=== PATIENT | female | born 1990 | race Caucasian/White ===

== ENCOUNTER → 2016-12-14 | Outpatient (CLI) | payer MEDICAID, OTHER ==
[~2016-12-14] MED LIST: /AUGM875TA OR; FLON0.05; MULTIVIT PO; TYLENOL #3 OR
[2016-12-14 13:40] LABS: BASO % 0.2 % (0.0-1.0); EOS # 0.2 K/mm3 (0.0-0.50); EOS % 2.4 % (0.0-3.0); LARGE UNSTAINED CELL # 0.2 K/mm3 (0.0-0.4); LARGE UNSTAINED CELL % 3.5 % (0.0-4.0); LYMPH # 1.4 K/mm3 (1.5-6.5); LYMPH % 22.8 % (24.0-44.0); MEAN CORPUSCULAR HEMOGLOBIN 31.5 pg (27.0-33.0); MEAN CORPUSCULAR HGB CONC 33.9 g/dl (32.0-36.5); MEAN CORPUSCULAR VOLUME 92.8 fl (80.0-96.0); MONO # 0.5 K/mm3 (0.0-0.8); MONO % 7.7 % (0.0-5.0); NEUTROPHILS # 3.9 K/mm3 (1.8-7.7); NEUTROPHILS % 63.5 % (36.0-66.0); PLATELET COUNT, AUTOMATED 280 k/mm3 (150-450); WHITE BLOOD COUNT 6.2 K/mm3 (4.0-10.0)
[2016-12-14 13:46] LABS: HBsAg Prenatal NEGATIVE (NEGATIVE)
[2016-12-14 14:21] LABS: HIV SCRN NEGATIVE (NEGATIVE); HIV SCRN1 NEGATIVE (NEGATIVE)
[2016-12-14 14:22] LABS: CONTROL LINE INT CTR LINE PRESENT
== END ==
LOC: M LAB 11:49
PROVIDERS: ATTEND Advanced Practice Midwife
DX: Z34.81 Encounter for supervision of other normal pregnancy, first trimester (principal)

== ENCOUNTER → 2016-12-25 | Outpatient (CLI) | payer MEDICAID ==
--- NOTE | 2016-12-25 13:11 | REP ---
OB ULTRASOUND: Real-time sonographic evaluation of the gravid uterus performed. There is a single living intrauterine gestation. Estimated gestational age 15 weeks 3 days based on today's ultrasound with EDC 06/15/2017. BPD 30 mm 15 weeks 4 days HC 114 mm 15 weeks 4 days AC 95 mm 15 weeks 5 days FL 17 mm 15 weeks 0 days HC/AC ratio 1.19 within normal range. Estimated weight 122 grams, 40th percentile. Cervix closed and measures 3.3 cm in length. heart rate 138 beats per minute. Placenta anterior with no abruption. Amniotic fluid within normal limits. Signed by Devante Vásquez MD 12/25/2016 03:31 P
== END ==
LOC: M RAD 11:42
PROVIDERS: ATTEND Advanced Practice Midwife
DX: Z34.82 Encounter for supervision of other normal pregnancy, second trimester (principal)

== ENCOUNTER → 2017-02-07 | Outpatient (CLI) | payer MEDICAID ==
--- NOTE | 2017-02-07 16:01 | REP ---
REASON: anatomy. Multiple ultrasonographic images of the gravid uterus show a single living intrauterine gestation in the cephalic presentation. Doppler interrogation of the heart shows a heart rate of 155 beats per minute. The placenta is anterior and not low lying. The subjective amniotic fluid volume is within normal limits. The cervix measures 4 cm in length and is closed. Evaluation of the maternal adnexal spaces showed no abnormalities. BPD 5.3 cm = 22 weeks 1 day HC 19.5 cm = 21 weeks 5 days AC 18.0 cm = 22 weeks 6 days FL 3.7 cm = 21 weeks 5 days The estimated weight is 493 grams which is at the 66th percentile for a 21 week 5 day gestational age. Structures visualized and unremarkable are as follows: Thalami, cavum septum pellucidum, cerebellum, cisterna magna, cerebral ventricles, spine, kidneys, bladder, stomach, cord insertion, three vessel umbilical cord, extremities, four chamber heart, ventricular outflow tracts, and upper lip. IMPRESSION: A single living intrauterine gestation as described above with an estimated gestational age of 22 weeks 1 day via composite criteria giving rise to an estimated date of delivery of 06/12/2017 by today's exam. No anomalies were detected. Signed by Travis Heath DO 02/07/2017 04:24 P
== END ==
LOC: M RAD 13:26
PROVIDERS: ATTEND Obstetrics & Gynecology
DX: Z34.80 Encounter for supervision of other normal pregnancy, unspecified trimester (principal)

== ENCOUNTER → 2017-05-15 | Outpatient (REF) | payer OTHER ==
[~2017-05-15] MED LIST changes: +COLA100C5 PO; +IBUP80TA PO; +OXYC1TAB23 PO; +PRENTAB55 PO
== END ==
LOC: M LAB REF 17:21
PROVIDERS: ATTEND Advanced Practice Midwife
DX: Z34.83 Encounter for supervision of other normal pregnancy, third trimester (principal)

== ENCOUNTER 2017-06-11 05:40 | Inpatient (IN) | payer OTHER ==
[~2017-06-11] VITALS: Ht 157.5 cm; Wt 78.0 kg
[2017-06-11] VITALS (7 sets, daily range): BP systolic 120–131; BP diastolic 57–73
[~2017-06-11 05:40] MED LIST changes: -COLA100C5 PO; -IBUP80TA PO; -OXYC1TAB23 PO; +UNRESOLVED CLARIFICATION ENTRY XX SCH
[2017-06-11] MEDS ORDERED: BICITRA 30ML SOLN UDC PO ONE (06:00)
[2017-06-11] MEDS ORDERED: LR 1,000 ML IV ONE (06:00)
[2017-06-11 06:11] LABS: MEAN CORPUSCULAR HEMOGLOBIN 33.3 pg (27.0-33.0); MEAN CORPUSCULAR HGB CONC 35.2 g/dl (32.0-36.5); MEAN CORPUSCULAR VOLUME 94.7 fl (80.0-96.0); RED CELL DISTRIBUTION WIDTH 12.7 % (11.5-14.5); WHITE BLOOD COUNT 12.4 K/mm3 (4.0-10.0)
[2017-06-11] MEDS ORDERED: LR 1,000 ML IV SCH ×2 (06:30→09:30)
[2017-06-11] MEDS ORDERED: MORPHINE PRES-FREE INJ 10 MG/10 ML VIAL (J2274) As Ordered ONE (07:08)
[2017-06-11] MEDS ORDERED: OXYTOCIN INJ 10 UNITS/ML VIAL (J2590) As Ordered ONE (07:08)
[2017-06-11] MEDS ORDERED: PHENYLephrine HCL 500 MCG/5 ML (100MCG/ML) SYRINGE (J2370) As Ordered ONE (07:59)
[2017-06-11] MEDS ORDERED: ePHEDrine SULFATE 25 MG/5 ML(5MG/ML) SYRINGE As Ordered ONE ×2 (08:00→08:13)
[2017-06-11] MEDS ORDERED: KETOROLAC 60 MG/2 ML VIAL (J1885) As Ordered ONE (08:16)
[2017-06-11] MEDS ORDERED: ONDANSETRON 4MG/2ML VIAL (J2405) As Ordered ONE (08:16)
[2017-06-11] MEDS ORDERED: MEASLES,MUMPS,RUBELLA VACCINE INJ (MMR-II) (90707) SC SCH (09:00)
[2017-06-11] MEDS ORDERED: ONDANSETRON 4MG/2ML VIAL (J2405) IV PRN ×2 (09:00→09:30)
[2017-06-11] MEDS ORDERED: RHOGAM 300 MCG (1500 IU) INJ (J2790) IM SCH (09:00)
[2017-06-11] MEDS: KETOROLAC 30 MG/ML VIAL (J1885) IV SCH ×3 (09:00→21:29)
[2017-06-11] MEDS: PRENATAL VITAMINS CHEWABLE TABLET PO SCH (09:00)
[2017-06-11] MEDS ORDERED: DOCUSATE SODIUM 100 MG CAP PO PRN (09:00)
[2017-06-11] MEDS ORDERED: PERCOCET 5MG/325MG TAB PO PRN ×2 (09:00→09:30)
[2017-06-11] MEDS ORDERED: OXYTOCIN DRIP 30 UNITS in APPROPRIATE DILUENT 1 EA IV ONE (09:00)
[2017-06-11] MEDS ORDERED: fentaNYL 100 MCG/2 ML INJECTION (J3010) IV PRN (09:30)
[2017-06-11] MEDS ORDERED: METOCLOPRAMIDE INJ 10MG/2ML VIAL (J2765) IV PRN (09:30)
[2017-06-11] MEDS: LR 1,000 ML IV SCH ×2 (10:55→19:00)
[2017-06-11] MEDS: PERCOCET 5MG/325MG TAB PO PRN (11:57)
[2017-06-12] MEDS: PERCOCET 5MG/325MG TAB PO PRN ×5 (01:01→20:41)
[2017-06-12 02:04] VITALS: BP 97/44
[2017-06-12] MEDS: KETOROLAC 30 MG/ML VIAL (J1885) IV SCH (03:35)
[2017-06-12 05:50] VITALS: BP 117/58
[2017-06-12] MEDS ORDERED: SLF 3 ML SYR IV PRN (07:00)
[2017-06-12 07:09] LABS: MEAN CORPUSCULAR HEMOGLOBIN 34.1 pg (27.0-33.0); MEAN CORPUSCULAR HGB CONC 35.7 g/dl (32.0-36.5); MEAN CORPUSCULAR VOLUME 95.4 fl (80.0-96.0); RED CELL DISTRIBUTION WIDTH 12.4 % (11.5-14.5); WHITE BLOOD COUNT 11.1 K/mm3 (4.0-10.0)
[2017-06-12] MEDS: PRENATAL VITAMINS CHEWABLE TABLET PO SCH (09:54)
[2017-06-12] MEDS: IBUPROFEN 800 MG TAB PO SCH ×2 (09:57→18:22)
[2017-06-12 10:02] VITALS: BP 132/60
[2017-06-12 13:55] VITALS: BP 129/62
[2017-06-12] MEDS ORDERED: SLF 3 ML SYR IV SCH (14:00)
[2017-06-12 18:10] VITALS: BP 116/56
[2017-06-12 22:17] VITALS: BP 117/69
[2017-06-13] MEDS: PERCOCET 5MG/325MG TAB PO PRN ×3 (00:53→10:14)
[2017-06-13] MEDS: IBUPROFEN 800 MG TAB PO SCH ×2 (03:29→11:53)
[2017-06-13 06:24] VITALS: BP 119/55
--- NOTE | 2017-06-13 07:16 | DSES ---
DATE OF /DATE OF ADMISSION: 06/11/2017 DATE OF DISCHARGE: 06/13/2017 DISCHARGE DIAGNOSIS: Repeat section with [place] bilateral tubal ligation postoperative, day number two in stable condition. SURGEON: Surgeon Dr. Daniel Locke. FILING CLERK: Dr. Nicolás Will. HISTORY: Magen underwent a repeat section on 06/11/2017 at 39+ weeks gestation as well as a [place] bilateral tubal ligation. Her surgery was uncomplicated. Estimated blood loss 500 mL. She delivered a live male, 9 and 9, weighing 7 pounds 8 ounces, 3412 grams. Her postoperative course has been uncomplicated. She has been out of bed for self care, adonis care and infant care. She is voiding without difficulty, passing flatus, tolerating a regular diet. Her pain has been well controlled with oral pain medications. She denies dizziness, palpitations, lightheadedness. She does desire to be discharged today. The is breast-feeding and she reports breast-feeding going well. OBJECTIVE: VITAL SIGNS: Temperature 98, pulse 74, respirations 16, blood pressure is 119/55. GENERAL: She is alert and oriented times three. She is in no apparent distress. BREASTS: Soft, nontender. Nipples are intact. No redness. No warmth observed. ABDOMEN: Fundus firm at umbilicus (U). Incision is well approximated. Steri-Strips are in place. No new drainage. No warmth. No redness. No edema. Perineum is intact. Lochia rubra scant. BILATERAL LOWER EXTREMITIES: Scant edema. LABORATORY DATA: 06/11/2017, CBC: Hemoglobin 12.4, hematocrit 35.2, platelets 302. Postoperative CBC on 06/12/2017 with hemoglobin 10, hematocrit 28.1, platelets 271. ASSESSMENT: 1. Postoperative day two repeat section with tubal ligation. 2. Stable for discharge. PLAN: 1. Discharge the patient home. 2. She is to followup with [facility] for a 2-week incision check and has a 6-[address] Locke. 3. Oral Percocet 5/325 has been E-prescribed by Dr. Locke to the patient's pharmacy 1-2 tablets by mouth every 6 hours taken as needed for pain, ibuprofen [id number] as directed. I did review discharge instructions that include breast care, incision care, adonis care, pelvic rest, activity and lifting restrictions, signs or symptoms of a deep venous thrombosis (DVT), signs or symptoms of baby blues versus depression, signs or systems of mastitis, access to care and other danger signs she should report to her provider. The patient does desire discharge today.
[2017-06-13] MEDS ORDERED: ADACEL/BOOSTRIX VACCINE (DIPHTH/PERTUSS/ACELL/TETANUS)0.5ML SYR (90715) IM ONE (09:00)
[2017-06-13] MEDS ORDERED: INFLUENZA QUADRIVALENT PF VACCINE 0.5ML SYRINGE (90686) IM ONE (09:00)
[2017-06-13] MEDS ORDERED: OXYC1TAB23 PO ×2 (09:01→12:20)
[2017-06-13] MEDS ORDERED: IBUP80TA PO (09:02)
[2017-06-13] MEDS ORDERED: COLA100C5 PO (09:03)
[2017-06-13] MEDS: PRENATAL VITAMINS CHEWABLE TABLET PO SCH (10:10)
== END 2017-06-13 12:40 | disposition home or self-care (01) | DRG 540 ==
LOC: M LDI 05:40 → M OBS 10:46
PROVIDERS: ADMIT Obstetrics & Gynecology; ATTEND Obstetrics & Gynecology
PROC: 0UB70ZZ Excision of Bilateral Fallopian Tubes, Open Approach (ICD-10-PCS; 2017-06-11)
PROC: 10D00Z1 Extraction of Products of Conception, Low, Open Approach (ICD-10-PCS; principal; 2017-06-11 07:30)
DX: O34.211 Maternal care for low transverse scar from previous cesarean delivery (principal); F17.210 Nicotine dependence, cigarettes, uncomplicated; Z30.2 Encounter for sterilization; Z3A.39 39 weeks gestation of pregnancy; O99.334 Smoking (tobacco) complicating childbirth; Z37.0 Single live birth; Z92.3 Personal history of irradiation; Z85.79 Personal history of other malignant neoplasms of lymphoid, hematopoietic and related tissues

== ENCOUNTER 2018-07-28 18:43 | Emergency (ER) | payer OTHER ==
[2018-07-28] MEDS: AUGMENTIN 875 MG TAB PO (22:14)
[2018-07-28] MEDS: NORCO 5/325MG TABLET (BULK FOR ED) PO (22:15)
[2018-07-28] MEDS: KETOROLAC 60 MG/2 ML VIAL (J1885) IM (22:17)
== END 2018-07-28 22:33 | disposition home or self-care (01) ==
LOC: M ED 18:43
DX: K04.7 Periapical abscess without sinus (principal); F17.200 Nicotine dependence, unspecified, uncomplicated
CPT/HCPCS: J1885